=== PATIENT | female | born 1960 | race Caucasian/White ===

== ENCOUNTER 2020-07-25 13:51 | Emergency (ER) | payer BC ==
[~2020-07-25] VITALS: Ht 149.9 cm; Wt 77.3 kg
[2020-07-25 14:30] VITALS: BP 106/91
[2020-07-25] MEDS ORDERED: LIDOcaine 1% 30ml preserv. free vial IJ ONE (15:35)
--- NOTE | 2020-07-25 15:52 | NUR ---
PROFESSOR OF LANGUAGES BILL AT BEDSIDE
--- NOTE | 2020-07-25 15:58 | NUR ---
HEMATOMA BLOCK SET UP, MIXER BLENDER CALLED.
[2020-07-25] MEDS ORDERED: IBUP-1985 PO (16:29)
[2020-07-25] MEDS ORDERED: HYDR-3965 PO (16:29)
[2020-07-25] MEDS ORDERED: ibuprofen 200mg tablet PO ONE (16:40)
== END 2020-07-25 16:49 | disposition home or self-care (01) ==
LOC: ER 13:52
DX: S52.502A Unspecified fracture of the lower end of left radius, initial encounter for closed fracture (principal); S52.602A Unspecified fracture of lower end of left ulna, initial encounter for closed fracture; F12.90 Cannabis use, unspecified, uncomplicated; Z72.89 Other problems related to lifestyle; Z87.891 Personal history of nicotine dependence; Z90.710 Acquired absence of both cervix and uterus; Z88.6 Allergy status to analgesic agent; W00.0XXA Fall on same level due to ice and snow, initial encounter; Z91.81 History of falling; Y93.89 Activity, other specified; Y92.89 Other specified places as the place of occurrence of the external cause; Y99.8 Other external cause status
CPT/HCPCS: 25605; 73110; 99284

== ENCOUNTER 2021-04-03 06:57 | Inpatient (IN) | payer BC ==
[~2021-04-03] VITALS: Ht 149.9 cm; Wt 77.3 kg
[~2021-04-03 06:57] MED LIST: IBUP-1985 PO
[2021-04-03 07:41] LABS: ALBUMIN 2.6 G/DL (3.4-5.0); ANION GAP 14 (8-16); BLOOD UREA NITROGEN 11 MG/DL (7-18); BUN/CREATININE RATIO 17.2 (6.6-38.0); CALCIUM 9.2 MG/DL (8.5-10.1); CHLORIDE 100 MMOL/L (99-107); CREATININE 0.64 MG/DL (0.40-0.90); GLUCOSE 125 MG/DL (70-104); POTASSIUM 3.1 MMOL/L (3.5-5.1); SODIUM 139 MMOL/L (135-145); TOTAL CARBON DIOXIDE 24.6 MMOL/L (24-32); eGFR > 90 ML/MIN
[2021-04-03 07:43] LABS: D-DIMER 1.47 MG/L FEU (0-0.50)
[2021-04-03 07:55] LABS: HEMOGLOBIN 12.7 g/dl (12.0-16.0)
[2021-04-03] MEDS ORDERED: dexamethasone sod phosphate 10mg/ml inj IV STA (07:55)
[2021-04-03] MEDS ORDERED: ondansetron/PF 4mg/2ml inj IV ONE (07:55)
[2021-04-03 07:57] LABS: BASOPHILS % (AUTO) 0.1 % (0-1); EOSINOPHILS % (AUTO) 0.3 % (0-6); HEMATOCRIT 38.6 % (35.0-45.0); LYMPHOCYTES # (AUTO) 0.9 X10'3 (1.1-4.8); LYMPHOCYTES % (AUTO) 6.7 % (21-51); MEAN CORPUSCULAR HEMOGLOBIN 30.1 PG (27.0-31.0); MEAN CORPUSCULAR HGB CONC 32.9 g/dL (33.0-36.5); MEAN CORPUSCULAR VOLUME 91.6 FL (78-98); MONOCYTES # (AUTO) 1.2 X10'3 (0-0.9); MONOCYTES % (AUTO) 8.9 % (2-12); PLATELET COUNT 675 X10'3 (140-440); RED BLOOD COUNT 4.22 X10'6 (4.20-5.60); RED CELL DISTRIBUTION WIDTH 13.5 % (11.5-14.5); WHITE BLOOD COUNT 13.1 X10'3 (4.5-11.0)
[2021-04-03] MEDS ORDERED: potassium Cl 20 mEq SR tablet PO STA (07:57)
[2021-04-03] MEDS ORDERED: iohexol 350MG/ML 100ml bottle IV ONE (08:09)
--- NOTE | 2021-04-03 09:04 | NUR ---
pt spo2 88 on ra and spo2 95% on 2l .pt meet the criteria to get o2 at home for ambulation and also at rest.
[2021-04-03] MEDS ORDERED: acetaminophen 325mg tablet PO ONE (10:50)
[2021-04-03] MEDS ORDERED: magnesium 4gm in 100ml NS 100 ML IV PRN (11:15)
[2021-04-03] MEDS ORDERED: ALBUTEROL INHALER 1 PUFF/90 MCG INHALER IH PRN (11:15)
[2021-04-03] MEDS ORDERED: potassium Cl 40MEQ/1/2NS 520ml 520 ML IV PRN ×2 (11:15)
[2021-04-03] MEDS ORDERED: magnesium Cl slow-release 64mg tablet PO PRN (11:15)
[2021-04-03] MEDS ORDERED: potassium Cl 20 mEq SR tablet PO PRN ×2 (11:15)
[2021-04-03] MEDS ORDERED: ondansetron/PF 4mg/2ml inj IV PRN (11:15)
[2021-04-03] MEDS ORDERED: magnesium 2GM in 50ml NS 50 ML IV PRN (11:15)
[2021-04-03] MEDS ORDERED: NO HOME MEDS (12:33)
[2021-04-03] MEDS: normal saline 1000ml 1,000 ML IV SCH (14:08)
[2021-04-03] MEDS: enoxaparin 40mg/0.4ml syringe SUBCUT SCH (14:09)
[2021-04-03] MEDS: acetaminophen 325mg tablet PO PRN ×2 (14:38→20:18)
--- NOTE | 2021-04-03 17:16 | NUR ---
Received patient to room 4021B via wheelchair accompanied by x1 staff. Patient is alert and oriented with no s/s of apparent acute distress. Patient able to ambulate independently to and from bathroom, denies SOB. Patient oriented to room and call light. Call light placed within patient's reach.
[2021-04-03 17:48] VITALS: BP 132/68
--- NOTE | 2021-04-03 18:24 | NUR ---
Problems reprioritized. Patient report given, questions answered & plan of care reviewed with OFE Rocha.
--- NOTE | 2021-04-03 18:33 | NUR ---
Patient in room ORTHO 4021. I have received report from Sofiya THAKUR and had the opportunity to ask questions and assume patient care.
[2021-04-03] MEDS: K and/or MAG REPLACEMENT MC SCH (20:00)
[2021-04-03 22:00] VITALS: BP 126/69
[2021-04-04 02:00] VITALS: BP 122/71
[2021-04-04] MEDS: acetaminophen 325mg tablet PO PRN ×3 (05:12→22:09)
[2021-04-04 06:34] VITALS: BP 125/76
--- NOTE | 2021-04-04 06:35 | NUR ---
Patient in room ORTHO 4021. I have received report from Cheryl THAKUR and had the opportunity to ask questions and assume patient care.
--- NOTE | 2021-04-04 06:36 | NUR ---
Patient in room ORTHO 4021. I have received report from Josefina THAKUR and had the opportunity to ask questions and assume patient care.
[2021-04-04 07:05] LABS: EOSINOPHILS % (AUTO) 0.1 % (0-6); HEMOGLOBIN 12.1 g/dl (12.0-16.0); MONOCYTES # (AUTO) 1.2 X10'3 (0-0.9)
[2021-04-04 07:07] LABS: BASOPHILS # (AUTO) 0.2 X10'3 (0-0.2); BASOPHILS % (AUTO) 1.3 % (0-1); HEMATOCRIT 35.2 % (35.0-45.0); LYMPHOCYTES # (AUTO) 1.2 X10'3 (1.1-4.8); LYMPHOCYTES % (AUTO) 9.5 % (21-51); MEAN CORPUSCULAR HEMOGLOBIN 31.1 PG (27.0-31.0); MEAN CORPUSCULAR HGB CONC 34.4 g/dL (33.0-36.5); MEAN CORPUSCULAR VOLUME 90.5 FL (78-98); MEAN PLATELET VOLUME 7.9 FL (7.4-10.4); NEUTROPHILS # (AUTO) 9.6 X10'3 (1.8-7.7); NEUTROPHILS % (AUTO) 79.1 % (42-75); PLATELET COUNT 705 X10'3 (140-440); RED BLOOD COUNT 3.89 X10'6 (4.20-5.60); RED CELL DISTRIBUTION WIDTH 13.2 % (11.5-14.5); WHITE BLOOD COUNT 12.1 X10'3 (4.5-11.0)
[2021-04-04 07:25] LABS: ALBUMIN 2.4 G/DL (3.4-5.0); ANION GAP 12 (8-16); BLOOD UREA NITROGEN 14 MG/DL (7-18); BUN/CREATININE RATIO 20.6 (6.6-38.0); CALCIUM 9.3 MG/DL (8.5-10.1); CHLORIDE 103 MMOL/L (99-107); CREATININE 0.68 MG/DL (0.40-0.90); GLUCOSE 107 MG/DL (70-104); MAGNESIUM 2.4 MG/DL (1.5-2.4); POTASSIUM 3.9 MMOL/L (3.5-5.1); SODIUM 140 MMOL/L (135-145); TOTAL CARBON DIOXIDE 24.8 MMOL/L (24-32); eGFR 88 ML/MIN
[2021-04-04] MEDS ORDERED: dexamethasone 4mg/ml inj IV SCH (08:00)
[2021-04-04] MEDS: K and/or MAG REPLACEMENT MC SCH ×2 (08:00→19:38)
[2021-04-04 08:08] LABS: C-REACTIVE PROTEIN 22.79 MG/DL (0.0-0.5); LACTATE DEHYDROGENASE 370 U/L (81-234)
[2021-04-04 08:47] LABS: PLATELET ESTIMATE INCREASED; POLYCHROMASIA 1+
[2021-04-04 08:48] LABS: ANISOCYTOSIS 1+; LARGE PLATELETS FEW
[2021-04-04] MEDS: dexamethasone 6 MG in NS 50ml IV soln IV SCH (09:06)
[2021-04-04] MEDS: enoxaparin 40mg/0.4ml syringe SUBCUT SCH (09:07)
[2021-04-04 09:25] LABS: D-DIMER 1.24 MG/L FEU (0-0.50)
--- NOTE | 2021-04-04 09:35 | NUR ---
PAGER ID: [phone] MESSAGE: [email or web address]. Platelets are 705 only on 40mg of lovenox daily just fy. [email or web address] [id number]
--- NOTE | 2021-04-04 09:46 | NUR ---
Educated patient on proning and insentive spirometry use.
[2021-04-04 11:18] VITALS: BP 129/66
--- NOTE | 2021-04-04 14:27 | NUR ---
Patient is proned
[2021-04-04 14:31] VITALS: BP 141/79
--- NOTE | 2021-04-04 16:48 | NUR ---
Patient titrated to room air.
[2021-04-04 17:35] VITALS: BP 110/43
--- NOTE | 2021-04-04 18:13 | NUR ---
Problems reprioritized. Patient report given, questions answered & plan of care reviewed with Josefina THAKUR.
--- NOTE | 2021-04-04 18:22 | NUR ---
Patient in room ORTHO 4021. I have received report from Cheryl THAKUR and had the opportunity to ask questions and assume patient care.
[2021-04-04 22:00] VITALS: BP 131/66
[2021-04-04] MEDS ORDERED: Melatonin 3mg tablet PO SCH (22:00)
[2021-04-04] MEDS ORDERED: Melatonin 3mg tablet PO PRN (22:05)
[2021-04-05 02:00] VITALS: BP 150/90
[2021-04-05] MEDS ORDERED: HYDROcodone/acetaminophen 5mg/325mg tablet PO ONE (02:30)
[2021-04-05] MEDS: acetaminophen 325mg tablet PO PRN ×3 (05:36→17:13)
[2021-04-05 06:30] VITALS: BP 135/73
--- NOTE | 2021-04-05 06:36 | NUR ---
Problems reprioritized. Patient report given, questions answered & plan of care reviewed with Miranda THAKUR.
[2021-04-05] MEDS: K and/or MAG REPLACEMENT MC SCH (08:00)
[2021-04-05 08:37] LABS: D-DIMER 1.53 MG/L FEU (0-0.50)
[2021-04-05 08:41] LABS: HEMOGLOBIN 11.9 g/dl (12.0-16.0); LYMPHOCYTES # (AUTO) 1.4 X10'3 (1.1-4.8); RED CELL DISTRIBUTION WIDTH 13.5 % (11.5-14.5)
[2021-04-05 08:44] LABS: BASOPHILS % (AUTO) 0.3 % (0-1); EOSINOPHILS % (AUTO) 0.2 % (0-6); HEMATOCRIT 35.1 % (35.0-45.0); LYMPHOCYTES % (AUTO) 11.4 % (21-51); MEAN CORPUSCULAR HEMOGLOBIN 30.9 PG (27.0-31.0); MEAN CORPUSCULAR HGB CONC 33.9 g/dL (33.0-36.5); MEAN CORPUSCULAR VOLUME 91.2 FL (78-98); MEAN PLATELET VOLUME 8.1 FL (7.4-10.4); MONOCYTES # (AUTO) 1.4 X10'3 (0-0.9); MONOCYTES % (AUTO) 10.7 % (2-12); NEUTROPHILS # (AUTO) 9.8 X10'3 (1.8-7.7); NEUTROPHILS % (AUTO) 77.4 % (42-75); PLATELET COUNT 769 X10'3 (140-440); RED BLOOD COUNT 3.85 X10'6 (4.20-5.60); WHITE BLOOD COUNT 12.6 X10'3 (4.5-11.0)
[2021-04-05 08:48] LABS: ALBUMIN 2.4 G/DL (3.4-5.0); ANION GAP 9 (8-16); BLOOD UREA NITROGEN 19 MG/DL (7-18); BUN/CREATININE RATIO 28.4 (6.6-38.0); CHLORIDE 105 MMOL/L (99-107); CREATININE 0.67 MG/DL (0.40-0.90); GLUCOSE 104 MG/DL (70-104); SODIUM 142 MMOL/L (135-145); TOTAL CARBON DIOXIDE 27.7 MMOL/L (24-32); eGFR 89 ML/MIN
[2021-04-05 08:56] LABS: C-REACTIVE PROTEIN 6.47 MG/DL (0.0-0.5); LACTATE DEHYDROGENASE 559 U/L (81-234); MAGNESIUM 2.7 MG/DL (1.5-2.4); PHOSPHORUS 3.2 MG/DL (2.3-4.5)
[2021-04-05] MEDS: dexamethasone 6 MG in NS 50ml IV soln IV SCH (09:27)
[2021-04-05] MEDS: enoxaparin 40mg/0.4ml syringe SUBCUT SCH (09:28)
[2021-04-05 10:56] LABS: GIANT PLATELET FEW; PLATELET ESTIMATE INCREASED
[2021-04-05 11:00] VITALS: BP 145/81
[2021-04-05] MEDS: normal saline 1000ml 1,000 ML IV SCH (11:15)
--- NOTE | 2021-04-05 13:44 | NUR ---
O2 Sat at rest on room air:_89__% If below 89%: Recovery O2 Sat at rest on ___LPM:___%:_1__% via____NC (mask/nasal cannula, etc..) No further documentation is necessary. If O2 Sat did not drop below 89% on room air,ambulate patient on room air. O2 Sat while ambulating on room air:___% Recovery O2 Sat while ambulating on ___LPM:___% No further documentation is necessary. If patient does not drop below 89% while ambulating, he/she does not qualify for home O2.
[2021-04-05] MEDS ORDERED: DEXA6TAB PO (14:27)
[2021-04-05] MEDS ORDERED: BENZ-16 PO (14:27)
[2021-04-05] MEDS ORDERED: ALBU8.5H17 INH (14:27)
[2021-04-05] MEDS ORDERED: ASPI-611 PO (14:27)
--- NOTE | 2021-04-05 14:50 | NUR ---
O2 Sat at rest on room air:_85__% If below 89%: Recovery O2 Sat at rest on ___LPM:_95__%:_2__% via____NC (mask/nasal cannula, etc..) No further documentation is necessary. If O2 Sat did not drop below 89% on room air,ambulate patient on room air. O2 Sat while ambulating on room air:___% Recovery O2 Sat while ambulating on ___LPM:___% No further documentation is necessary. If patient does not drop below 89% while ambulating, he/she does not qualify for home O2.
--- NOTE | 2021-04-05 17:07 | NUR ---
NOTIFIED FROM [facility] THAT THEY LEFT A MSG FOR [facility] THAT THEY COULD NOT DELIVER PORTABLE O2. I WAS NEVER NOTIFIED. MONITORING PT ON RA TO SEE IF SHE IS STABLE OFF 02 AND CAN DC HOME WITH IT. PT 02 92 RA NOW. WILL CONT TO MONITOR THEN DC HOME PT IS VERY AGITATED. SHE STATES THAT SHE WANTS TO LEAVE, NEEDS TO BE HOME BEFORE DARK. STATES SHE HAS A RIDE COMING.
--- NOTE | 2021-04-05 17:23 | NUR ---
PT 02 STAYING ABOVE 90 ON RA. PTS DIL COMING TO PICK HER UP
--- NOTE | 2021-04-05 18:36 | NUR ---
PT DISCHARGED IN STABLE CONDITION. LEFT FACILITY IN PRIVATE VEHICLE WITH DIL. IV WAS PREVIOUSLY DCd TODAY. FOLLOW UP INSTRUCTIONS GIVEN, ALL QUESTIONS ANSWERED. PT VERY AGITATED TODAY, INAPPROPRIATE BEHAVIOR, MOCKING, AND OVERALL UNPLEASANT. MANY ATTEMPTS MADE TO CONNECT WITH PT, GREETED PT AND APPLIED PROFESSIONAL BEHAVIOR THROUGH OUT THE DAY. Addendum: 04/05/21 at 1841 by Laura Abrams RN Amended: Links added.
== END 2021-04-05 17:30 | disposition home or self-care (01) | DRG 177 ==
LOC: ER 06:58 → ED HOLD 11:18 → ORTHO 4S 16:50
PROVIDERS: ADMIT Internal Medicine; ATTEND Family Medicine
PROC: B32T1ZZ Computerized Tomography (CT Scan) of Left Pulmonary Artery using Low Osmolar Contrast (ICD-10-PCS; principal; 2021-04-03)
PROC: B3201ZZ Computerized Tomography (CT Scan) of Thoracic Aorta using Low Osmolar Contrast (ICD-10-PCS; 2021-04-03)
PROC: B32S1ZZ Computerized Tomography (CT Scan) of Right Pulmonary Artery using Low Osmolar Contrast (ICD-10-PCS; 2021-04-03)
DX: U07.1 COVID-19 (principal); J12.82 Pneumonia due to coronavirus disease 2019; J96.01 Acute respiratory failure with hypoxia; Z66 Do not resuscitate; F12.90 Cannabis use, unspecified, uncomplicated; E87.6 Hypokalemia; Z90.710 Acquired absence of both cervix and uterus; Z88.5 Allergy status to narcotic agent
CPT/HCPCS: 36415; 71045; 71275; 80048; 83615; 83735; 84100; 85008; 85025; 85379; 86140; 87081; 93005; 94760; G0378; J1100; J1650; J2405; J7030; Q9967

== ENCOUNTER 2021-12-09 16:45 | Emergency (ER) | payer BC ==
[~2021-12-09] VITALS: Ht 149.9 cm; Wt 79.5 kg
[~2021-12-09 16:45] MED LIST changes: +ALBU8.5H17 INH; +BENZ-16 PO; +DEXA6TAB PO; -IBUP-1985 PO
[2021-12-09 17:34] VITALS: BP 144/79
[2021-12-09] MEDS ORDERED: amox tr/potassium clavulanate 875/125mg TAB PO STA (18:22)
[2021-12-09] MEDS ORDERED: AMOX-117 PO (18:32)
--- NOTE | 2021-12-09 18:41 | NUR ---
PO MED GIVEN
== END 2021-12-09 18:42 | disposition home or self-care (01) ==
LOC: ER 16:46
DX: S60.512A Abrasion of left hand, initial encounter (principal); L03.012 Cellulitis of left finger; F12.90 Cannabis use, unspecified, uncomplicated; Z90.710 Acquired absence of both cervix and uterus; Z88.5 Allergy status to narcotic agent; W55.01XA Bitten by cat, initial encounter; Y93.89 Activity, other specified; Y92.89 Other specified places as the place of occurrence of the external cause; Y99.9 Unspecified external cause status
CPT/HCPCS: 99283